=== PATIENT | male | born 1950 | race Caucasian/White ===

== ENCOUNTER 2025-05-09 10:34 | Emergency (ER) | payer BC, OTHER ==
[~2025-05-09] VITALS: Ht 175.3 cm; Wt 68.3 kg
[2025-05-09 10:53] VITALS: RESP 20; O2SAT 96
--- NOTE | 2025-05-09 10:53 | ED.PDOC ---
HPI (NEURO) HPI Comments 74-year-old male who presents to the ED via EMS for c/c of dizziness and headache Per EMS ,patient works on farm with animals and states over the past 3- 4 weeks he has been having increasing dizziness earlier this a.m. after he exerted himself more than usual and started to have dizziness Patient states that he felt lightheaded and almost had a syncopal but they did not pass out and lay down and called EMS EMS arrived on scene and checked vitals including blood pressure which was 136/87 and while from a sitting to standing position patient has started to get dizzy and blood pressure went to 87/57 EMS placed patient in a prone position and and gave 500 mL of fluid and rechecked blood pressure afterwards which was noted to be 101/64 and pt was brought to the ED Patient now in the ED otherwise he is alert and oriented x4 and able to answer all questions and no noted changes in gait vision or speech are noted Patient now in the ED states he is having associated chest pain Patient otherwise states he is being evaluated for his symptoms by [facility] Patient in the ED otherwise denies any other symptoms at this time PMHx: Asthma, diabetes, hyperlipidemia, hypertension, thyroid disease Past surgical history: Unknown Medications: Lisinopril, metformin, trazodone Allergies: Denies Social history: Denied EtOH use denies tobacco use denies drug use PITZLER: ORTHOSTATIC, dizzy. normal exam. HPI: Poor Historian. REVIEW OF SYSTEMS: CONSTITUTIONAL: Denies acute: fever, diaphoresis, chills, HEAD: Denies acute: headache, photophobia Eyes: Denies acute: Double vision, vision loss, eye pain, eye discharge. EARS: Denies acute: tinnitus, hearing loss, ear discharge, ear pain, THROAT: Denies acute: sore throat, swelling, difficulty swallowing , pain with swallowing, change in voice. NECK: Denies acute: neck pain, neck swelling, stiff neck. HEART: Denies acute : chest pain, palpitations, LUNGS: Denies acute: SOB, wheezing, cough, hemoptysis ABDOMEN: Denies acute: abdominal pain, Nausea, Vomiting, diarrhea, melena , hematemesis, hematochezia SKIN: Denies acute: rash, redness, lesions, itchiness. EXTREMITIES: Denies acute: calf pain, numbness, tingling, weakness, denies pain in extremity. Denies acute: Low back pain. Neuro: Denies acute: focal neurological deficit, motor or sensory focal neurological d eficit, tremors, seizure like activity, confusion, change in mental status, loss of bowel or bladder function, cauda equina like symptoms. : Denies acute: dysuria, hematuria, flank pain, increase in urinary frequency. PSYCH: Denies acute: hallucination, suicidal ideation, homicidal ideation. PHYSICAL EXAM: General: -----mild---acute distress, awake and alert. Head: normocephalic, atraumatic. Neck: supple, trachea is midline, no swelling. Throat: Normal phonation. Eyes:, no erythema, no purulent discharge, no proptosis, no icterus. Heart: regular rate, regular rhythm, no significant murmur appreciated. Lungs: no apparent respiratory distress, Able to speak in full sentences. No wheezing, no rhonchi, no crackles. No stridors Clear to auscultation bilaterally. Abdomen: non tender to palpation, non distended, soft, no guarding, no rebound, + bowel sounds. Neuro: Awake, Alert, oriented to name, self, situation, follows commands GCS=15. Speech is normal. Skin: no petechia, no purpura, no cyanosis, non-pale, not jaundice. Lower extremities: --no - Pitting edema no deformity, no focal swelling, no calf TTP. Makes eye contact. moves all four extremities. Face: no apparent facial droop. Ambulating in the ED independently. ED COURSE: DISCLAIMER: This medical document was created using an electronic medical record system with voice recognition software and computerized dictation system. Although this document has been carefully reviewed, there might still be some phonetic and typographical errors. Occasional wrong-word or "sound-alike" substitutions may have occurred due to the inherent limitations of voice recognition software. These areas are purely typographical due to imperfections of the software programs and do not reflect any compromise in the patient's medical care. Please read the chart carefully and recognize, using context, where these substitutions have occurred. 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 Was a procedure done?: No X-Ray, Labs, Meds, VS Vital Signs Date Time Temp Pulse Resp B/P (MAP) Pulse Ox O2 Delivery O2 Flow Rate FiO2 05/09/25 13:44 97.8 79 19 124/71 (88) 97 97.8 05/09/25 13:00 78 19 110/69 (83) 97 05/09/25 12:40 105 14 96 Room Air* 0 21 05/09/25 11:50 125 89/62 05/09/25 11:45 107 05/09/25 11:30 97.8 105 14 102/62 (75) 96 97.8 05/09/25 11:21 98.4 98 18 101/64 97 98.4 05/09/25 11:05 98 05/09/25 10:53 20 96 Room Air* 0 21 05/09/25 10:52 20 96/70 (79) 96 05/09/25 10:35 98 Lab Test 05/09/25 12:18 05/09/25 11:18 Range/Units Troponin I High Sensitivity 10 8 </=54 ng/L White Blood Count 9.3 4.4-10.8 10^3/uL Red Blood Count 4.27 L 4.5-5.90 10^6/uL Hemoglobin 12.5 L 13.5-17.5 g/dL Hematocrit 38.1 L 41.0-53.0 % Mean Corpuscular Volume 89.3 80.0-100.0 fL Mean Corpuscular Hemoglobin 29.4 28.0-32.0 pg Mean Corpuscular Hemoglobin Concent 32.9 32.0-36.0 g/dL Red Cell Distribution Width 15.1 H 11.8-14.3 % Platelet Count 119 L 140-450 10^3/uL Mean Platelet Volume 11.0 H 6.9-10.8 fL Neutrophils (%) (Auto) 83.0 H 37.0-80.0 % Lymphocytes (%) (Auto) 9.8 L 10.0-50.0 % Monocytes (%) (Auto) 5.2 0.0-12.0 % Eosinophils (%) (Auto) 1.3 0.0-7.0 % Basophils (%) (Auto) 0.7 0.0-2.0 % Neutrophils # (Auto) 7.7 1.6-8.6 10 ^3/uL Lymphocytes # (Auto) 0.9 0.4-5.4 10 ^3/uL Monocytes # (Auto) 0.5 0-1.3 10 ^3/uL Eosinophils # (Auto) 0.1 0-0.8 10 ^3/uL Basophils # (Auto) 0.1 0-0.2 10 ^3/uL Nucleated Red Blood Cells 0.1 % D-Dimer, Quantitative < 0.19 0.0-0.49 mg/L FEU Sodium Level 141 136-145 mmol/L Potassium Level 4.4 3.5-5.1 mmol/L Chloride Level 107 98-107 mmol/L Carbon Dioxide Level 26 20-31 mmol/L Anion Gap 8 5-15 Blood Urea Nitrogen 27 H 9-23 mg/dL Creatinine 1.51 H 0.700-1.30 mg/dL Glomerular Filtration Rate Calc 48 >90 mL/min BUN/Creatinine Ratio 17.9 10.0-20.0 Serum Glucose 270 H 74-106 mg/dL Calcium Level 9.5 8.7-10.4 mg/dL Total Bilirubin 0.5 0.2-1.0 mg/dL Aspartate Amino Transferase (AST) 17 13-40 U/L Alanine Aminotransferase (ALT) 21 7-40 U/L Alkaline Phosphatase 60 46-116 U/L B-Type Natriuretic Peptide 234.16 0-100 pg/mL Total Protein 5.8 5.7-8.2 g/dL Albumin 3.7 3.2-4.8 g/dL Current Medications Medications (Trade) Dose Ordered Sig/Gabbie Route Start Time Stop Time Status Last Admin Sodium Chloride 1,000 ml @ 1,000 mls/hr Q1H ONCE IV 05/09/25 12:15 05/09/25 13:14 DC 05/09/25 12:53 Ceftriaxone Sodium 50 ml @ 100 mls/hr ONCE ONCE IV 05/09/25 12:15 05/09/25 12:44 DC 05/09/25 12:54 Azithromycin (Zithromax Tablet) 500 mg ONCE ONCE PO 05/09/25 12:30 05/09/25 12:32 DC 05/09/25 12:54 [place] [id number] Ph: [phone] DIAGNOSTIC IMAGING Diagnostic Imaging Report : [id number] Signed PATIENT: HEDY PINEDA ACCT: [id number] UNIT: [id number] : 1950 LOC: ER ROOM / BED: / AGE / SEX: 74 / M ADM STATUS: REG ER SERVICE 1058 ORDERING PHYSICIAN: JEAN GANDHI DO PROCEDURE(s): CXRP - CHEST PORTABLE REASON: cp ORDER NUMBER(s): [id number], ACCESSION NUMBER(s): [id number] CHEST RADIOGRAPH Indication: cp Technique: Single frontal view of the chest was obtained Comparison: None FINDINGS: Lines and Tubes: None Lungs: There is left basilar consolidation. The right lung is clear. Pleura: No effusion. No pneumothorax. Cardiomediastinal contours: Unremarkable Bones: No acute osseous abnormality. IMPRESSION: 1. Left basilar consolidation. ATED BY: KATELYN SUN MD DICTATED DATE/TIME: 05/09/251133 SIGNED BY: KATELYN SUN MD SIGNED DATE/TIME: 05/09/251133 CC: Time of 1ST Reevaluation: 11:30 Reevaluation 1ST: Unchanged Time of 2ND Reevaluation: 12:22 (The case was discussed with the [facility] admitting team (HPI, physical exam, labs and diagnostic tests that were available at the time of disposition, ED course, treatment plan) on the phone. They agreed to transfer the patient to their service by [facility] for further evaluation and treatment. Dr. Marks--. Authorization number is--[id number]) Patient Education/Counseling: Diagnosis, Treatment Family Education/Counseling: No Family Present Comments MDM: patient presented with the above HPI.---dizziness---workup was initiated. patient was found with the above mentioned diagnosis. the following medications were ordered: please refer to order lists of meds and tests obtained by myself Dr. Gandhi. Patient ED course and VS have been stabilized. Patient has been reassessed in the ED and remained in a stable condition. Pertinent incidental findings were discussed with the patient and/or family. Patient/family voices understanding and is agreeable with plan. Patient has been observed in the ED adequate length of time to insure improvement/stability. Escalation of care considered: Consideration of escalation to observation or admission Patient was given fluid hydration. Patient continued to be orthostatic hypotensive and becomes tachycardic with ambulation. Chest x-ray suggests lung consolidation. Antibiotics initiated. Patient was transferred to [facility] per insurance requirement for further evaluation and treatment of their presentation. All the reports of any imaging studies that were ordered by myself were reviewed by myself. Departure 1 Departure Time of Disposition: 12:23 Impression: Primary Impression: Orthostatic hypotension Additional Impressions: Lung consolidation Hyperglycemia due to diabetes mellitus Disposition: 02 SHORT TERM HOSPITAL Admit to: [facility] Condition: Guarded Discharged With: Self Critical Care Note Critical Care Time?: Yes (45 min-critical care time only) Stability Stability form required: No Heart Score Heart Score: Heart Score Response (Comments) Value History Moderate Suspicious 1 EKG Normal 0 Age >65 2 Risk Factors >3 or Hx ASHD 2 Troponin Normal limit 0 Total 5 I personally scribed for JEAN GANDHI DO ([email or web address]) on 05/09/25 at 10:53. Electronically submitted by Janette Hester ([employer]). I personally scribed for JEAN GANDHI DO ([email or web address]) on 05/09/25 at 11:05. Electronically submitted by Janette Hester ([employer]). I personally scribed for JEAN GANDHI DO ([email or web address]) on 05/09/25 at 11:09. Electronically submitted by Janette Hester ([employer]). I personally scribed for JEAN GANDHI DO ([email or web address]) on 05/09/25 at 11:42. Electronically submitted by Janette Hester ([employer]). I personally scribed for JEAN GANDHI DO ([email or web address]) on 05/09/25 at 13:39. Electronically submitted by Yoli Suarez ([facility]). JEAN GANDHI DO May 09, 2025 10:53
--- NOTE | 2025-05-09 11:36 | DVH ---
CHEST RADIOGRAPH Indication: cp Technique: Single frontal view of the chest was obtained Comparison: None FINDINGS: Lines and Tubes: None Lungs: There is left basilar consolidation. The right lung is clear. Pleura: No effusion. No pneumothorax. Cardiomediastinal contours: Unremarkable Bones: No acute osseous abnormality. IMPRESSION: 1. Left basilar consolidation.
[2025-05-09 11:48] LABS: Hematocrit 38.1 % (41.0-53.0); Hemoglobin 12.5 g/dL (13.5-17.5); Mean Corpuscular Hemoglobin 29.4 pg (28.0-32.0); Mean Corpuscular Volume 89.3 fL (80.0-100.0); Nucleated Red Blood Cells % 0.1 %
[2025-05-09 12:05] LABS: Alanine Aminotransferase 21 U/L (7-40); Albumin 3.7 g/dL (3.2-4.8); Alkaline Phosphatase 60 U/L (46-116); Anion Gap 8 (5-15); BUN/Creatinine Ratio 17.9 (10.0-20.0); Bilirubin, Total 0.5 mg/dL (0.2-1.0); Calcium 9.5 mg/dL (8.7-10.4); Carbon Dioxide 26 mmol/L (20-31); Chloride 107 mmol/L (98-107); Potassium 4.4 mmol/L (3.5-5.1); Sodium 141 mmol/L (136-145); Total Protein 5.8 g/dL (5.7-8.2)
[2025-05-09 12:08] LABS: Blood Urea Nitrogen 27 mg/dL (9-23); Glucose 270 mg/dL (74-106)
[2025-05-09 12:40] VITALS: PULSE 105; RESP 14; O2SAT 96
[2025-05-09] MEDS: SODIUM CHLORIDE 0.9% 1,000 ML IV ONE (12:53)
[2025-05-09] MEDS: AZITHROMYCIN 250 MG TAB PO ONE (12:54)
[2025-05-09 13:44] VITALS: BP 124/71; PULSE 79; RESP 19; TEMP 97.8; O2SAT 97
--- NOTE | 2025-05-09 18:11 | ECG ---
[facility] Test Date: 2025-05-09 Test Time: 10:35:41 Pat Name: HEDY PINEDA Department: [facility] ED Patient ID: [facility]-[id number] Room: Gender: M Laboratory Analyst: KIESHA : 1950 Requested By: JEAN GANDHI Order Number: [id number] Reading MD: Measurements Intervals [place] Rate: 98 P: 77 MO: 225 QRS: 76 QRSD: 90 T: 72 QT: 344 QTc: 440 Interpretive Statements Sinus rhythm Prolonged MO interval Minimal ST elevation, inferior leads Please click the below link to view image of tracing.
== END 2025-05-09 12:06 | disposition short-term general hospital (02) ==
LOC: EDBD 10:34 → ER 10:34
DX: I95.1 Orthostatic hypotension (principal); J98.4 Other disorders of lung; R06.02 Shortness of breath; E11.65 Type 2 diabetes mellitus with hyperglycemia; J45.909 Unspecified asthma, uncomplicated; E78.5 Hyperlipidemia, unspecified; I10 Essential (primary) hypertension
CPT/HCPCS: 36415; 71045; 80053; 83880; 84484; 85025; 85379; 93005; 96365; 99291; J0696; J7030